=== PATIENT | female | born 1975 | race Caucasian/White ===

== ENCOUNTER → 2019-06-13 | Outpatient (CLI) | payer BC ==
[~2019-06-13] MED LIST: DIAZEPAM 5 MG TABLET ONE
--- NOTE | 2019-06-13 15:15 | RADIOLOGY REPORT (SQ) ---
EXAM DESCRIPTION: MRI CERVICAL SPINE WITHOUT COMPLETED DATE/TIME: 06/13/2019 2:32 pm REASON FOR STUDY: M54.12 RADICULOPATHY, CERVICAL REGION M54.12 RADICULOPATHY, CERVICAL REGION COMPARISON: None. TECHNIQUE: Sagittal and Axial imaging includes T1, T2, STIR and gradient echo sequences. LIMITATIONS: Motion artifact. FINDINGS: ALIGNMENT: Normal. VERTEBRAE: Intact. BONE MARROW: Normal. No marrow replacement or reactive changes. DISCS: Normal. No significant abnormal signal or loss of height. HARDWARE: None in the spine. CORD AND BASE OF BRAIN: Normal in size and signal intensity. SOFT TISSUES: No soft tissue masses. C1-C2: No significant spinal stenosis. C2-C3: No significant spinal stenosis or exit foraminal stenosis. C3-C4: No significant spinal stenosis or exit foraminal stenosis. C4-C5: No significant spinal stenosis or exit foraminal stenosis. C5-C6: Cord contact without compression due to central and downward disc protrusion. Mild neural for aminal narrowing bilaterally. C6-C7: Cord contact without cord compression due to small central disc protrusion. Mild neural lulu inal narrowing bilaterally. C7-T1: No significant spinal stenosis or exit foraminal stenosis. UPPER THORACIC: Incompletely imaged. No significant spinal stenosis or exit foraminal stenosis. OTHER: No other significant finding. IMPRESSION: Mild spinal stenosis secondary to disc herniations at C5- 6 and C6-7. TECHNICAL DOCUMENTATION: JOB ID: [id number] 2010 [employer]- All Rights Reserved Reading location - IP/workstation name: [email or web address]
== END ==
LOC: RAD 12:36
PROVIDERS: ATTEND Family Medicine
DX: M50.123 Cervical disc disorder at C6-C7 level with radiculopathy (principal)
CPT/HCPCS: 72141

== ENCOUNTER 2019-08-05 10:58 | Emergency (ER) | payer BC ==
[2019-08-05] MEDS ORDERED: IPRATROPIUM/ALBUTEROL 0.5-2.5 MG/3 ML AMPUL NEB ONE (11:37)
[2019-08-05] MEDS ORDERED: PREDNISONE 20 MG TABLET PO ONE (11:37)
[2019-08-05 11:43] LABS: ABSOLUTE EOSINOPHILS # (AUTO) 0.1 10^3/uL (0.0-0.6); ABSOLUTE LYMPHOCYTES (AUTO) 1.8 10^3/uL (0.5-4.7); ABSOLUTE MONOCYTES (AUTO) 1.8 10^3/uL (0.1-1.4); ABSOLUTE NEUT (AUTO) 8.8 10^3/uL (1.7-8.2); BASOPHILS % (AUTO) 0.2 % (0-2); EOSINOPHILS % (AUTO) 0.8 % (0-6); HEMATOCRIT 37.7 % (36.0-47.0); HEMOGLOBIN 12.7 g/dL (12.0-15.5); LYMPHOCYTES % (AUTO) 14.2 % (13-45); MEAN CORPUSCULAR HEMOGLOBIN 27.1 pg (27.0-33.4); MEAN CORPUSCULAR HGB CONC 33.6 g/dL (32.0-36.0); MEAN CORPUSCULAR VOLUME 81 fl (80-97); MONOCYTES % (AUTO) 14.5 % (3-13); PLATELET COUNT 172 10^3/uL (150-450); RED BLOOD COUNT 4.69 10^6/uL (3.72-5.28); RED CELL DISTRIBUTION WIDTH 15.6 % (11.5-14.0); SEGMENTED NEUTROPHILS % (AUTO) 70.3 % (42-78); TOTAL CELLS COUNTED % (AUTO) 100 %; WHITE BLOOD COUNT 12.5 10^3/uL (4.0-10.5)
[2019-08-05] MEDS: MAGNESIUM SULFATE/D5W 1 GM/100 ML RTUPB IV SCH ×2 (11:58→13:09)
[2019-08-05 12:11] LABS: ALBUMIN 3.6 g/dL (3.5-5.0); ALKALINE PHOSPHATASE 97 U/L (38-126); ANION GAP 6 (5-19); ASPARTATE AMINO TRANSFERASE 20 U/L (14-36); BILIRUBIN,TOTAL 0.4 mg/dL (0.2-1.3); BLOOD UREA NITROGEN 16 mg/dL (7-20); CALCIUM 8.9 mg/dL (8.4-10.2); CARBON DIOXIDE 27 mmol/L (22-30); CHLORIDE 103 mmol/L (98-107); CREATINE KINASE 141 U/L (30-135); GLUCOSE 114 mg/dL (75-110); POTASSIUM 4.1 mmol/L (3.6-5.0); TOTAL PROTEIN 6.4 g/dL (6.3-8.2)
--- NOTE | 2019-08-05 12:11 | RADIOLOGY REPORT (SQ) ---
EXAM DESCRIPTION: CHEST SINGLE VIEW IMAGES COMPLETED DATE/TIME: 08/05/2019 11:59 am REASON FOR STUDY: Wheezing, SOB COMPARISON: None. EXAM PARAMETERS: NUMBER OF VIEWS: One view. TECHNIQUE: An AP view of the chest was obtained. RADIATION DOSE: NA LIMITATIONS: None. FINDINGS: LUNGS AND PLEURA: No consolidation, pleural effusion or pneumothorax. MEDIASTINUM AND HILAR STRUCTURES: No mediastinal or hilar contour abnormality. HEART AND VASCULAR STRUCTURES: The cardiac silhouette and pulmonary vasculature are within normal gordon its. BONES: No acute findings. HARDWARE: None in the chest. OTHER: No other finding. IMPRESSION: No acute cardiopulmonary process. TECHNICAL DOCUMENTATION: JOB ID: [id number] 2010 [employer]- All Rights Reserved Reading location - IP/workstation name: [email or web address]
[2019-08-05 12:16] LABS: APPEARANCE,URINE TURBID; BILIRUBIN,URINE NEGATIVE (NEGATIVE); GLUCOSE, URINE NEGATIVE (NEGATIVE); KETONES,URINE NEGATIVE (NEGATIVE); LEUKOCYTE ESTERASE,URINE MODERATE (NEGATIVE); NITRITE,URINE NEGATIVE (NEGATIVE); PROTEIN,URINE 100 mg/dL (NEGATIVE); URINE SPECIFIC GRAVITY 1.013; UROBILINOGEN,URINE NEGATIVE mg/dL (<2.0)
[2019-08-05 12:17] LABS: COLOR,URINE DARK YELLOW
[2019-08-05] MEDS ORDERED: ALBUTEROL SULFATE 0.083% NEB 2.5 MG/3 ML AMPUL NEB ONE ×2 (12:29→13:16)
--- NOTE | 2019-08-05 12:30 | ER Document Report ---
Entered by STANLEY EDWARDS SCRIBE 08/05/19 1136 Acting as scribe for:JAKE SERNA MD ED Respiratory Problem - General Chief Complaint: Shortness Of Breath Stated Complaint: SHORTNESS OF BREATH Time Seen by Provider: 08/05/19 11:17 Primary Care Provider: LUIS RAY DO [ACTIVE STAFF] - Follow up as needed Mode of Arrival: Ambulatory Information source: Patient Notes: This 43 year old female patient presents to the emergency department today with complaints of shortness of breath with an associated cough. Her went to their primary care physician on July 30, he was tested for COVID-19 and that results come back negative. She was not tested but she was told to self quarantine for 14 days and was started on a Z-Ronald. Patient mentions that she has the "worst case of endometriosis ever seen" and has had irregular periods her whole life. Patient mentions that she has been on her current menses for 6 months and then later on in conversation corrects this to 6 weeks. Patient is prescribed Percocet 7.5 mg 3 times a day and 1 mg Xanax twice daily. Patient frequently nods off throughout exam but requests pain medication upon exit, stating she has a "bad headache and hurts all over". TRAVEL OUTSIDE OF THE [place] IN LAST 30 DAYS: No - Related Data Allergies/Adverse Reactions: metoclopramide [From Reglan] Allergy (Verified 08/05/19 11:47) Sulfa (Sulfonamide Antibiotics) Allergy (Verified 08/05/19 11:47) Past Medical History - General Information source: Patient - Social History Smoking Status: Current Every Day Smoker Cigarette use (# per day): Yes Frequency of alcohol use: None Drug Abuse: None Lives with: Family Family History: Reviewed & Not Pertinent - Medical History Medical History: Negative Past Surgical History: Reports: Hx Gynecologic Surgery - Tubal Ligation in 1998, Reversed in 2010, Hx Myringotomy - "16 sets", Hx Orthopedic Surgery - Right ankle, Hx Tonsillectomy Review of Systems - Review of Systems Constitutional: denies: Fever EENT: No symptoms reported Cardiovascular: No symptoms reported Respiratory: See HPI, Cough, Hemoptysis, Short of breath, Sputum, Wheezing Gastrointestinal: No symptoms reported Genitourinary: No symptoms reported Female Genitourinary: See HPI, Irregular period Musculoskeletal: See HPI, Muscle pain, Muscle stiffness Skin: No symptoms reported Hematologic/Lymphatic: No symptoms reported Neurological/Psychological: See HPI, Headaches -: Yes All other systems reviewed and negative Physical Exam - Vital signs Vitals: Resp Pulse Ox 17 93 08/05/19 11:01 08/05/19 11:01 - Notes Notes: Physical Exam: General: Mostly alert, nods off during conversation quite frequently. Speech is somewhat slurred. HEENT: Normocephalic. Atraumatic. PERRL. Extraocular movements intact. Oropharynx clear. Neck: Supple. Non-tender. Respiratory: Mild respiratory distress, SPO2 97% on room air. Very tight inspiratory and expiratory wheezing bilaterally. Cardiovascular: Regular rate and rhythm. Abdominal: Obese. Non-tender. No distension. Normal Bowel Sounds. Back: No gross abnormalities. Extremities: Moves all four extremities. Upper extremities: Normal inspection. Normal ROM. Lower extremities: Normal inspection. No edema. Normal ROM. Neurological: Normal cognition. AAOx4. Normal speech. Psychological: Normal affect. Normal Mood. Skin: Warm. Dry. Normal color. Course - Re-evaluation Re-evalutation: 08/05/19 15:12 Catheterized urinalysis showed moderate leukocyte esterase, with too numerous to count WBCs and too numerous to count RBCs, and 2+ bacteria. Auscultation the patient has diffuse inspiratory wheezes and rhonchi when she coughs. It is improved with better airflow than when I first saw her. She states her breathing does feel about at its baseline now, she knows she has COPD and that she wheezes all the time. She continues to ask for pain medicine for her headache and aching all over. When I told her to take the medication she is on for her chronic pain management, she states she is not on that medication any longer that she split with her spouse and went to [place] and has not gotten back on the medicine since then. She states it is been over 2 months. Review of pharmacy records shows that she received Percocet 7.5 mg #40 tablets on 06/19/2019, and received #90 tablets on 06/27/2019. She still does look somewhat drowsy, she is obviously lying about her narcotic use and how much she has been obtaining. She will be discharged with doxycycline for the urinary tract infection and bronchitis. She will be prescribed prednisone to help with her COPD. She is recommended to continue using her nebulizer. She should take Tylenol and ibuprofen for her headache and pain if needed. She is advised to follow-up with her primary care provider for further management of her problems. - Vital Signs Vital signs: Temp Pulse Resp BP Pulse Ox 98.8 F 99 14 137/93 H 93 08/05/19 11:43 08/05/19 11:43 08/05/19 14:31 08/05/19 14:31 08/05/19 13:03 - Laboratory Result Diagrams: 08/05/19 11:14 08/05/19 11:14 Laboratory results interpreted by me: 08/05/19 08/05/19 08/05/19 11:14 11:14 11:14 WBC 12.5 H RDW 15.6 H Stephens % (Auto) 14.5 H Absolute Neuts (auto) 8.8 H Absolute Monos (auto) 1.8 H Sodium 136.4 L Glucose 114 H Creatine Kinase 141 H Urine Protein 100 H Urine Blood LARGE H Ur Leukocyte Esterase MODERATE H 08/05/19 12:52 WBC RDW Stephens % (Auto) Absolute Neuts (auto) Absolute Monos (auto) Sodium Glucose Creatine Kinase Urine Protein 100 H Urine Blood LARGE H Ur Leukocyte Esterase LARGE H - Diagnostic Test Radiology reviewed: Image reviewed, Reports reviewed - Chest x-ray does not show acute cardiopulmonary process. - EKG Interpretation by Me EKG shows normal: Sinus rhythm, Ewing, Intervals, QRS Complexes. abnormal: ST-T Waves - Borderline inferior T abnormalities Rate: Normal - 87 Rhythm: NSR Discharge - Discharge Clinical Impression: COPD exacerbation Urinary tract infection Qualifiers: Urinary tract infection type: site unspecified Hematuria presence: with hematuria Qualified Code(s): N39.0 - Urinary tract infection, site not specified; R31.9 - Hematuria, unspecified Condition: Stable Disposition: HOME, SELF-CARE Additional Instructions: Urinary Tract Infection: Your evaluation indicates that you have a urinary tract infection. This is due to germs growing in the bladder. This is a common problem. This infection usually responds quickly to antibiotics. Your antibiotic should be taken exactly as prescribed. Drink plenty of fluids -- three to four quarts a day. Occasionally, a bladder anesthetic will be prescribed to help stop the feeling of urgency until the antibiotic has a chance to clear the infection. This may cause your urine to be dark orange. Certain urine infections require a culture. If the doctor obtained a culture, the results will be back in two days. You should call to see if a change in treatment is needed. A repeat urinalysis after you finish treatment is often recommended. The physician will let you know if further testing is required. Call the doctor if you develop fever, chills, flank pain, inability to urinate, or blood in the urine. Chronic Obstructive Lung Disease: You have chronic obstructive lung disease (COPD). The symptoms come from emphysema (damage to small airways, with trapping of air in large sacks in the lung) and chronic bronchitis (repeated infection and damage to larger airways). The cause is almost always cigarette smoking, although dust exposure, asthma, and infections contribute. You should avoid fumes, dust, and smoke (especially tobacco smoke). Your condition will flare from time to time. There is no cure, but the symptoms can be treated. Bronchodilators (asthma medicine) are often helpful. Antibiotics help when infection is present. When shortness of breath is severe, we may prescribe cortisone medication. If medicine doesn't help enough, we can arrange for you to have an oxygen tank at home. Notify your doctor at once if sputum becomes thick, foul, or bloody, if you develop a fever or chest pain, or if your shortness of breath worsens. Take the doxycycline as prescribed for your urinary tract infection and your COPD exacerbation. Start taking the prednisone tomorrow, you received today's dose here in the emergency room. Continue using your nebulizer at least every 4 hours for your wheezing. Drink plenty of fluids. Try to stop smoking. Follow-up with your primary care provider recheck your urine next week, to help manage her COPD, and to manage your chronic pain. RETURN TO THE EMERGENCY ROOM IF ANY NEW OR WORSENING SYMPTOMS. Prescriptions: Prednisone [Deltasone 20 mg Tablet] 20 mg PO TID #15 tablet Doxycycline Hyclate 100 mg PO BID #20 tablet.dr Referrals: LUIS RAY DO [ACTIVE STAFF] - Follow up in 3-5 days I personally performed the services described in the documentation, reviewed and edited the documentation which was dictated to the scribe in my presence, and it accurately records my words and actions.
[2019-08-05] MEDS ORDERED: NORMAL SALINE 1000 ML 1,000 ML IV ONE (13:17)
[2019-08-05 13:30] LABS: APPEARANCE,URINE TURBID; BILIRUBIN,URINE NEGATIVE (NEGATIVE); COLOR,URINE DARK YELLOW; GLUCOSE, URINE NEGATIVE (NEGATIVE); KETONES,URINE NEGATIVE (NEGATIVE); LEUKOCYTE ESTERASE,URINE LARGE (NEGATIVE); NITRITE,URINE NEGATIVE (NEGATIVE); PROTEIN,URINE 100 mg/dL (NEGATIVE); URINE SPECIFIC GRAVITY 1.025; UROBILINOGEN,URINE NEGATIVE mg/dL (<2.0)
[2019-08-05 14:55] VITALS: BP 137/93
== END 2019-08-05 15:50 | disposition home or self-care (01) ==
LOC: ER 10:58
DX: J44.1 Chronic obstructive pulmonary disease with (acute) exacerbation (principal); N39.0 Urinary tract infection, site not specified; R06.02 Shortness of breath; F17.210 Nicotine dependence, cigarettes, uncomplicated; Z88.2 Allergy status to sulfonamides; Z98.51 Tubal ligation status
CPT/HCPCS: 94640 ×2; 99284; 51701; 96365; 96366; 36415; 87040; 87086; 82550; 85025; 87088; 80053; 81001; 71045; J3475; J7512; J7030; J7620; 87186